=== PATIENT | female | born 1960 | race Two or more races ===

== ENCOUNTER 2023-06-09 09:52 | Emergency (ER) | payer OTHER ==
[~2023-06-09] VITALS: Ht 154.9 cm; Wt 68.0 kg
[~2023-06-09 09:52] MED LIST: NORVASC5 MG PO
[2023-06-09] MEDS ORDERED: ATORVASTATIN CA10 MG PO (10:13)
[2023-06-09] MEDS ORDERED: METFORMIN HCL500 M4 PO (10:13)
[2023-06-09] MEDS ORDERED: MONTELUKAST SOD10 MG PO (10:13)
[2023-06-09] MEDS ORDERED: LOSARTAN POTASS50 MG PO (10:13)
[2023-06-09 11:44] LABS: HEMATOCRIT 36.4 % (36.0-45.00); HEMOGLOBIN 12.6 g/dL (12.0-15.00); MEAN CELL VOLUME 84.5 fL (80.00-100.00); MEAN CORPUSCULAR HEMOGLOBIN 29.2 pg (27.00-32.0); MEAN CORPUSCULAR HGB CONC 34.5 g/dl (32.0-36.0); PLATELET COUNT 394 K/uL (150-450); RED CELL DISTRIBUTION WIDTH 13.5 % (11.5-14.5)
== END 2023-06-09 13:56 | disposition home or self-care (01) ==
LOC: ER 09:53
PROVIDERS: General Practice
DX: J45.909 Unspecified asthma, uncomplicated (principal); Z88.0 Allergy status to penicillin; Z88.8 Allergy status to other drugs, medicaments and biological substances; Z91.040 Latex allergy status; E11.9 Type 2 diabetes mellitus without complications; Z79.84 Long term (current) use of oral hypoglycemic drugs